=== PATIENT | female | born 1940 | race Caucasian/White ===

== ENCOUNTER 2016-11-28 14:51 | Emergency (ER) | payer OTHER ==
[2016-11-28 15:07] VITALS: TEMP 98.8; BMI 32.4
[2016-11-28] MEDS ORDERED: FAMOTIDINE 20 MG/50 ML IVPB 50 ML IVPB ONE ×2 (16:21→16:50)
[2016-11-28] MEDS ORDERED: ACETAMINOPHEN 1000 MG/100 ML VIAL (NON FORMULARY) IVPB ONE (16:21)
[2016-11-28] MEDS ORDERED: SODIUM CHLORIDE 500 ML IV STA (16:21)
[2016-11-28] MEDS ORDERED: ONDANSETRON 4 MG/2 ML VIAL IVPUSH ONE (16:21)
[2016-11-28] MEDS ORDERED: MAG HYDROX/AL HYDROX/SIMETH 30 ML UNIT-DOSE CUP PO ONE (16:21)
--- NOTE | 2016-11-28 16:31 | PDOC ---
History of Present Illness - History of Present Illness Initial Comments: 11/28/16 18:25 Patient is a 75 year old female with significant medical hx of asthma, HTN, HLD , and abdominal hernia who is presenting to the ED with several days of epigastric pain and nausea. Patient reports having waves of nausea but no vomiting. She also complains of intermittent chills that have resolved and a decrease in appetite. The patient came to the ED today because her epigastric pain worsened over the past two days. Patient's last normal BM was yesterday and she denies any diarrhea or change in bowel movements. Denies fevers, chest pain, and shortness of breath. <Angle Arizmendi - Last Filed: 11/28/16 19:51> - General History Source: Patient, Old Records Exam Limitations: No Limitations <Josue Benton - Last Filed: 11/28/16 20:15> - General Chief Complaint: Pain, Acute Stated Complaint: ABD PAIN, NAUSEA Time Seen by Provider: 11/28/16 16:17 Past History <Angle Arizmendi - Last Filed: 11/28/16 19:51> - Past Medical History HTN: Yes Other medical history: abd hernia - Immunization History Immunization Up to Date: Yes - Psycho/Social/Smoking Cessation Hx Anxiety: No Suicidal Ideation: No Smoking History: Never smoked Have you smoked in the past 12 months: No Information on smoking cessation initiated: No Hx Alcohol Use: No Drug/Substance Use Hx: No <Josue Benton - Last Filed: 11/28/16 20:15> - Past Medical History Allergies/Adverse Reactions: Allergies Allergy/AdvReac Type Severity Reaction Status Date / Time No Known Allergies Allergy Verified 11/28/16 15:02 Home Medications: Ambulatory Orders Acetaminophen [Tylenol] 650 mg PO Q4H PRN #20 tablet 11/28/16 Aspirin [ASA -] 81 mg PO DAILY 11/28/16 Ciprofloxacin [Cipro -] 500 mg PO Q12H #14 tablet 11/28/16 Cromolyn Sodium [Crolom -] 1 drop OU BID 11/28/16 Hydrocortisone [Proctosol-Hc] 28.35 gm RC DAILY 11/28/16 Metoprolol Succinate [Toprol XL -] 25 mg PO DAILY 11/28/16 Metronidazole [Flagyl -] 500 mg PO TID #21 tablet 11/28/16 Omeprazole 40 mg PO AM 11/28/16 Ondansetron HCl [Zofran] 4 mg PO Q6H PRN #15 tablet 11/28/16 Pravastatin Sodium 20 mg PO HS 11/28/16 Ranitidine HCl [Zantac] 150 mg PO BID PRN #14 tablet 11/28/16 Review of Systems - Review of Systems Comments:: 11/28/16 18:29 GENERAL/CONSTITUTIONAL: Chills, loss of appetite. No fever. No weakness. HEAD, EYES, EARS, NOSE AND THROAT: No change in vision. No ear pain or discharge. No sore throat. CARDIOVASCULAR: No chest pain or shortness of breath. RESPIRATORY: No cough, wheezing, or hemoptysis. GASTROINTESTINAL: Epigastric pain, nausea. No vomiting, diarrhea or constipation. GENITOURINARY: No dysuria, frequency, or change in urination. MUSCULOSKELETAL: No joint or muscle swelling or pain. No neck or back pain. SKIN: No rash NEUROLOGIC: No headache, vertigo, loss of consciousness, or change in strength/ sensation. <Angle Arizmendi - Last Filed: 11/28/16 19:51> *Physical Exam - Vital Signs Last Vital Signs Temp Pulse Resp BP Pulse Ox 98.8 F 95 H 20 147/80 95 11/28/16 15:05 11/28/16 15:05 11/28/16 15:05 11/28/16 15:05 11/28/16 15:05 - Physical Exam Comments: 11/28/16 18:30 GENERAL: Awake, alert, and fully oriented, in no acute distress HEAD: No signs of trauma EYES: PERRLA, EOMI, sclera anicteric, conjunctiva clear ENT: Auricles normal inspection, hearing grossly normal, nares patent, oropharynx clear without exudates. Moist mucosa NECK: Normal ROM, supple, no lymphadenopathy, JVD, or masses LUNGS: Breath sounds equal, clear to auscultation bilaterally. No wheezes, and no crackles HEART: Regular rate and rhythm, normal S1 and S2, no murmurs, rubs or gallops ABDOMEN: Soft, epigastric tenderness to palpation, murphys sign negative, normoactive bowel sounds. No guarding, no rebound. No masses EXTREMITIES: Normal range of motion, no edema. No clubbing or cyanosis. No cords, erythema, or tenderness NEUROLOGICAL: Cranial nerves II through XII grossly intact. Normal speech, normal gait SKIN: Warm, Dry, normal turgor, no rashes or lesions noted. ENDOCRINE: No increased thirst. No abnormal weight change. HEMATOLOGIC/LYMPHATIC: No anemia, easy bleeding, or history of blood clots. ALLERGIC/IMMUNOLOGIC: No hives or skin allergy. <Angle Arizmendi - Last Filed: 11/28/16 19:51> - Vital Signs Last Vital Signs Temp Pulse Resp BP Pulse Ox 98.8 F 95 H 20 147/80 95 11/28/16 15:05 11/28/16 15:05 11/28/16 15:05 11/28/16 15:05 11/28/16 15:05 <Josue Benton - Last Filed: 11/28/16 20:15> Heart Score/ECG Review - History History: Slightly suspicious - Electrocardiogram EKG: Non specific repolarization disturbance - Age Age: >/= 65 - Risk Factors Based on the list above the patient has:: 1-2 risk factors - Troponin Troponin: </= normal limit - Score Heart Score - Total: 4 #1 ECG reviewed & interpreted by me at: 16:30 11/28/16 16:31 NSR 86, Q wave V1-V2, no std/lisseth, normal axis, normal intervals, QTC 437 msec <Josue Benton - Last Filed: 11/28/16 20:15> ED Treatment Course - LABORATORY CBC & Chemistry Diagram: 11/28/16 14:00 11/28/16 17:03 - ADDITIONAL ORDERS Additional order review: Laboratory Results 11/28/16 11/28/16 11/28/16 17:03 17:03 16:09 INR 1.09 PTT (Actin FS) 29.5 Sodium 141 Potassium 3.8 Chloride 106 Carbon Dioxide 27 Anion Gap 8 BUN 17 D Creatinine 0.9 Creat Clearance w eGFR > 60 Random Glucose 84 D Calcium 8.7 Total Bilirubin 0.3 AST 39 H D ALT 37 D Alkaline Phosphatase 50 D Creatine Kinase 221 H D Cancelled CK-MB (CK-2) 4.081 H Troponin I 0.02 Cancelled Total Protein 6.8 Albumin 3.7 Lipase 165 Urine Color Urine Appearance Urine pH Ur Specific [place] Urine Protein Urine Glucose (UA) Urine Ketones Urine Blood Urine Nitrite Urine Bilirubin Urine Urobilinogen Ur Leukocyte Esterase 11/28/16 11/28/16 16:09 16:09 INR PTT (Actin FS) Sodium Cancelled Potassium Cancelled Chloride Cancelled Carbon Dioxide Cancelled Anion Gap Cancelled BUN Cancelled Creatinine Cancelled Creat Clearance w eGFR Cancelled Random Glucose Cancelled Calcium Cancelled Total Bilirubin Cancelled AST Cancelled ALT Cancelled Alkaline Phosphatase Cancelled Creatine Kinase CK-MB (CK-2) Troponin I Total Protein Cancelled Albumin Cancelled Lipase Urine Color Straw Urine Appearance Clear Urine pH 5.0 Ur Specific [place] 1.013 Urine Protein Negative Urine Glucose (UA) Negative Urine Ketones Trace H Urine Blood Negative Urine Nitrite Negative Urine Bilirubin Negative Urine Urobilinogen Negative Ur Leukocyte Esterase Negative 11/28/16 14:00 RBC 4.88 MCV 84.0 MCHC 33.2 RDW 13.8 MPV 8.2 Neutrophils % 29.5 L D Lymphocytes % 53.4 H Monocytes % 15.4 H Eosinophils % 0.8 Basophils % 0.9 - RADIOLOGY Radiograph Interpretation: 11/28/16 18:33 Chest X-Ray Impression: No significant interval change or acute lung disease is present. Reported By: Isaac Marion MD 11/28/16 19:53 Abdomen/Pelvis CT Impression: Linear-like scarring in the right lung base over the right hemidiaphragm. There is suggestion of a small hiatus hernia. Partial distention of the stomach limiting evaluation of its wall. 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 Inadequate distention versus thickening of some of the proximal small bowel loops in the left mid abdomen. Differential diagnoses includes inflammatory versus infectious and also the possibility of infiltrative process. Correlate clinically to determine further evaluation and follow-up. Note is made of prominent soft tissue at the introitus. Correlate clinically. Reported By: Isaac Marion MD - Medications Given in the ED: ED Medications Discontinued Medications Generic Name Dose Route Start Last Admin Trade Name Freq PRN Reason Stop Dose Admin Acetaminophen 1,000 mg 11/28/16 16:21 11/28/16 16:50 Ofirmev Injection - IVPB 11/28/16 16:22 1,000 mg ONCE ONE Administration Al Hydroxide/Mg Hydroxide 30 ml 11/28/16 16:21 11/28/16 16:50 Mylanta Oral Suspension - PO 11/28/16 16:22 30 ml ONCE ONE Administration Famotidine/Sodium Chloride 50 mls @ 100 mls/hr 11/28/16 16:21 11/28/16 17:03 Pepcid 20 Mg Premixed Ivpb - IVPB 11/28/16 16:50 100 mls/hr ONCE ONE Administration Sodium Chloride 500 mls @ 500 mls/hr 11/28/16 16:21 11/28/16 16:50 Normal Saline - IV 11/28/16 17:20 500 mls/hr ASDIR STA Administration Ondansetron HCl 4 mg 11/28/16 16:21 11/28/16 16:50 Zofran Injection IVPUSH 11/28/16 16:22 4 mg ONCE ONE Administration <Angle Arizmendi - Last Filed: 11/28/16 19:51> - LABORATORY CBC & Chemistry Diagram: 11/28/16 14:00 11/28/16 17:03 - RADIOLOGY Radiology Studies Ordered: Category Date Time Status ABDOMEN & PELVIS CT WITH CONTR [CT] Stat CT Scan 11/28/16 16:21 Ordered CHEST X-RAY PORTABLE* [RAD] Stat Radiology 11/28/16 16:09 Ordered <Josue Benton - Last Filed: 11/28/16 20:15> Medical Decision Making - Medical Decision Making 11/28/16 16:28 A portion of this note was written by my scribe, under my supervision. Vital Signs Temp Pulse Resp BP Pulse Ox 98.8 F 95 H 20 147/80 95 11/28/16 15:05 11/28/16 15:05 11/28/16 15:05 11/28/16 15:05 11/28/16 15:05 75 year old female with history of HTN, HLD, abdominal hernia (?hiatal hernia?) , asthma p/w epigastric abdominal pain and nausea for the last several days. She reports in the last 2 days that the symptoms have become particularly worse. There is nausea but no vomiting. Reports having a normal BM yesterday. Denies fevers, but reports intermittent chills. Denies chills now. Denies midsternal chest pain or SOB. Does report decrease in appetite. I suspect that this is likely GI in origin. Differential includes gastritis, abdominal hernia vs. less likely biliary pathology or pancreatitis. Will obtain labs including lipase, troponin. I have low suspicion for ACS given positive abdominal tenderness. Will however, obtain an ECG and trop. Will obtain a CT abdomen and pelvis. Trial GERD medications and reassess. 11/28/16 20:05 CBC, BMP 11/28/16 14:00 11/28/16 17:03 CMP Sodium 141 mmol/L (136-145) 11/28/16 17:03 Potassium 3.8 mmol/L (3.5-5.1) 11/28/16 17:03 Chloride 106 mmol/L (98-107) 11/28/16 17:03 Carbon Dioxide 27 mmol/L (21-32) 11/28/16 17:03 Anion Gap 8 (8-16) 11/28/16 17:03 BUN 17 mg/dL (7-18) D 11/28/16 17:03 Creatinine 0.9 mg/dL (0.55-1.02) 11/28/16 17:03 Creat Clearance w eGFR > 60 (>60) 11/28/16 17:03 Random Glucose 84 mg/dL (74-106) D 11/28/16 17:03 Calcium 8.7 mg/dL (8.5-10.1) 11/28/16 17:03 Total Bilirubin 0.3 mg/dL (0.2-1.0) 11/28/16 17:03 AST 39 U/L (15-37) H D 11/28/16 17:03 ALT 37 U/L (12-78) D 11/28/16 17:03 Alkaline Phosphatase 50 U/L (45-117) D 11/28/16 17:03 Creatine Kinase 221 IU/L (26-192) H D 11/28/16 17:03 CK-MB (CK-2) 4.081 ng/ml (0.5-3.6) H 11/28/16 17:03 Troponin I 0.02 ng/ml (0.00-0.05) 11/28/16 17:03 Total Protein 6.8 g/dl (6.4-8.2) 11/28/16 17:03 Albumin 3.7 g/dl (3.4-5.0) 11/28/16 17:03 Lipase 165 U/L (73-393) 11/28/16 17:03 11/28/16 20:07 Chest x-ray reviewed. No acute findings. CAT scan demonstrates small hiatus hernia. Inadequate distention versus thickening and some the proximal small bowel loops. No bowel obstruction noted. There is also noted a prominent soft tissue at the introitus. White count was noted to be 3.3 with an absolute neutrophil count of approximately 1000. Given the CAT scan findings potential small bowel infection and low WBCs, we'll give ciprofloxacin and Flagyl. I had warned the patient regarding the risk of tendinitis. I instructed her not to engage in heavy physical activity. We'll also give her referral to a gastrologist for further workup as well. Patient is tolerating sandwiches and feels well. Return precautions given. I had informed the patient of the introitus tissue finding on CT scan. Results given and I had instructed her to follow up with her PMD with the results. I discussed the physical exam findings, ancillary test results and final diagnoses with the patient. I answered all of the patient's questions. The patient was satisfied with the care received and felt comfortable with the discharge plan and treatment plan. The patient will call their primary care physician within 24 hours to arrange follow-up and will return to the Emergency Department with any new, persistant or worsening symptoms. <Josue Benton - Last Filed: 11/28/16 20:15> *DC/Admit/Observation/Transfer - Attestations Scribe Attestion: 11/28/16 18:34 Documentation prepared by Angle Arizmendi, acting as medical attendant for Josue Benton MD. <Angle Arizmendi - Last Filed: 11/28/16 19:51> - Discharge Dispostion Admit: No <Josue Benton - Last Filed: 11/28/16 20:15> Diagnosis at time of Disposition: Ileitis - Discharge Dispostion Disposition: HOME Condition at time of disposition: Improved - Prescriptions Prescriptions: Ciprofloxacin [Cipro -] 500 mg PO Q12H #14 tablet Metronidazole [Flagyl -] 500 mg PO TID #21 tablet Acetaminophen [Tylenol] 650 mg PO Q4H PRN #20 tablet PRN Reason: Pain/Fever Ranitidine HCl [Zantac] 150 mg PO BID PRN #14 tablet PRN Reason: Abdominal Pain Ondansetron HCl [Zofran] 4 mg PO Q6H PRN #15 tablet PRN Reason: Nausea - Referrals Referrals: Leticia Dias [Primary Care Provider] - - Patient Instructions Printed Discharge Instructions: DI for Abdominal Pain-Adult Additional Instructions: Your CT scan shows a possible small bowel infection. Please take the two antibiotics (ciprofloxacin and flagyl) as ordered. Take 650 mg tylenol every 4 hours as needed for pain/fever. Take 4 mg zofran every 6 hours as needed for nausea. Take 150 mg zantac every 12 hours as needed for abdominal pain. Drink plenty of fluids and rest. Do not engage in heavy physical activity until you are cleared by your doctors. Print Language: [place]
[2016-11-28 16:32] LABS: BASOPHIL 0.9 % (0-2.0); EOSINOPHIL 0.8 % (0-4.5); MCH 27.9 pg (25.7-33.7); MCHC 33.2 g/dl (32.0-36.0); MEAN PLT VOLUME 8.2 fl (7.5-11.1); NEUTROPHILS 29.5 % (42.8-82.8); PLATELET COUNT 173 K/MM3 (134-434); RDW 13.8 % (11.6-15.6); WHITE BLOOD COUNT 3.3 K/mm3 (4.0-10.0)
[2016-11-28] MEDS ORDERED: ACETAMINOPHEN INJECTION 100 ML IVPB ONE (16:49)
[2016-11-28] MEDS ORDERED: ONDANSETRON 4 MG/2 ML VIAL ONE (16:49)
[2016-11-28] MEDS ORDERED: MAG HYDROX/AL HYDROX/SIMETH 30 ML UNIT-DOSE CUP ONE (16:49)
[2016-11-28 17:34] LABS: INR 1.09 (0.82-1.09)
[2016-11-28 17:37] LABS: ACTIVATED PTT 29.5 SECONDS (26.9-34.4)
[2016-11-28 17:43] LABS: ALBUMIN 3.7 g/dl (3.4-5.0); ANION GAP 8 (8-16); BILIRUBIN,TOTAL 0.3 mg/dL (0.2-1.0); CALCIUM 8.7 mg/dL (8.5-10.1); CO2 27 mmol/L (21-32); CREATININE 0.9 mg/dL (0.55-1.02); GLUCOSE,RANDOM 84 mg/dL (74-106); SGOT/AST 39 U/L (15-37); SGPT/ALT 37 U/L (12-78); TOT PROT 6.8 g/dl (6.4-8.2)
[2016-11-28 17:46] LABS: ALK PHOS 50 U/L (45-117); TROPONIN I 0.02 ng/ml (0.00-0.05)
[2016-11-28 18:12] LABS: URINE APPEARANCE CLEAR; URINE BILIRUBIN NEGATIVE (NEGATIVE); URINE BLOOD NEGATIVE (NEGATIVE); URINE COLOR STRAW; URINE GLUCOSE (UA) NEGATIVE (NEGATIVE); URINE KETONE TRACE (NEGATIVE); URINE LEUK ESTERASE NEGATIVE (NEGATIVE); URINE NITRITE NEGATIVE (NEGATIVE); URINE PROTEIN NEGATIVE (NEGATIVE); URINE UROBILINOGEN NEGATIVE E.U./dl (0.2-1.0)
[2016-11-28] MEDS ORDERED: metroNIDAZOLE 250 MG TABLET PO ONE (20:07)
[2016-11-28] MEDS ORDERED: CIPROFLOXACIN 250 MG TABLET (RESTRICTED TO ID) PO ONE (20:07)
[2016-11-28] MEDS ORDERED: metroNIDAZOLE 250 MG TABLET ONE (20:11)
[2016-11-28 20:23] VITALS: BP 134/74; PULSE 81
--- NOTE | 2016-11-29 10:11 | EKG ---
Test Reason : Blood Pressure : / mmHG Vent. Rate : 086 BPM Atrial Rate : 086 BPM P-R Int : 126 ms QRS Dur : 088 ms QT Int : 366 ms P-R-T Axes : 059 -04 055 degrees QTc Int : 437 ms NORMAL SINUS RHYTHM SEPTAL INFARCT , AGE UNDETERMINED ABNORMAL ECG WHEN COMPARED WITH ECG OF 30-OCT-2015 20:55, SEPTAL INFARCT IS NOW PRESENT NONSPECIFIC T WAVE ABNORMALITY, IMPROVED IN ANTERIOR LEADS T WAVE INVERSION NOW EVIDENT IN LATERAL LEADS Confirmed by KODI QUISPE MD ([id number]) on 11/29/2016 10:11:22 AM Referred By: Confirmed By:KODI QUISPE MD
== END 2016-11-28 20:22 | disposition home or self-care (01) ==
LOC: JER 14:51
PROC: 3E033GC Introduction of Other Therapeutic Substance into Peripheral Vein, Percutaneous Approach (ICD-10-PCS; principal; 2016-11-28)
PROC: 3E033NZ Introduction of Analgesics, Hypnotics, Sedatives into Peripheral Vein, Percutaneous Approach (ICD-10-PCS; 2016-11-28)
DX: K52.89 Other specified noninfective gastroenteritis and colitis (principal); I10 Essential (primary) hypertension; E78.5 Hyperlipidemia, unspecified; E78.00 Pure hypercholesterolemia, unspecified; K44.9 Diaphragmatic hernia without obstruction or gangrene
CPT/HCPCS: 36415; 71010-TC; 74177-TC; 80053; 81003; 82550; 82553; 83690; 84484; 85025; 85610; 85730; 93005; 93010; 99283-25; Q9967

== ENCOUNTER 2019-08-23 16:37 | Emergency (ER) | payer OTHER ==
[2019-08-23] MEDS ORDERED: ACETAMINOPHEN 325 MG TABLET (FP) PO ONE (16:45)
[2019-08-23 16:46] VITALS: BP 158/92; PULSE 89; TEMP 98; BMI 27.9
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
[2019-08-23] MEDS ORDERED: ACETAMINOPHEN 325 MG TABLET (FP) ONE (18:43)
== END 2019-08-23 18:51 | disposition home or self-care (01) ==
LOC: JERFT 16:37
DX: S46.811A Strain of other muscles, fascia and tendons at shoulder and upper arm level, right arm, initial encounter (principal); V78.1XXA Passenger on bus injured in noncollision transport accident in nontraffic accident, initial encounter; Y92.488 Other paved roadways as the place of occurrence of the external cause; Y93.89 Activity, other specified; Y99.8 Other external cause status; I10 Essential (primary) hypertension
CPT/HCPCS: 73030-TC-RT-FY; 99282-25

== ENCOUNTER 2023-11-27 13:44 | Emergency (ER) | payer OTHER ==
[2023-11-27] MEDS ORDERED: ACETAMINOPHEN 325 MG TABLET (FP) ONE (14:52)
[2023-11-27] MEDS: ACETAMINOPHEN 500 MG TABLET (FP) PO ONE (14:58)
[2023-11-27 16:09] VITALS: BP 166/77; PULSE 88; RESP 17; TEMP 99.3; BMI 27.9
[2023-11-27] MEDS ORDERED: NAPROXEN 500 MG TABLET ONE (16:46)
[2023-11-27] MEDS: NAPROXEN 500 MG TABLET PO ONE (16:55)
== END 2023-11-27 16:58 | disposition home or self-care (01) ==
LOC: JER 13:44
DX: M25.511 Pain in right shoulder (principal)
CPT/HCPCS: 73030-TC-RT-FY; 73060-TC-RT-FY; 99283-25